=== PATIENT | male | born 1980 | race Caucasian/White ===

== ENCOUNTER 2017-02-15 21:18 | Emergency (ER) | payer OTHER ==
[~2017-02-15] VITALS: Ht 180.3 cm; Wt 113.4 kg
[2017-02-15 21:24] VITALS: BP 141/90
--- NOTE | 2017-02-15 22:46 | NUR ---
BIB SPOUSE, C/O CHEST PAIN X 4 HOURS. PT STATES HE HAS HAD THIS PAIN IN THE PAST AND BEEN DX WITH RIB CAGE PAIN. PT STATES HIS PAIN IS A 2 RT NOW, PT STATES IT FEELS LIKE SOMEONE POKING ON HIS CHEST. PT DENIES N/V/D; SKIN IS PINK/WARM/DRY; AAOX4 WITH EVEN AND STEADY GAIT; LUNGS CLEAR BL; HR EVEN AND REGULAR; PT DENIES ANY FEVER,SOB, OR COUGH AT THIS TIME; PATIENT STATES PAIN OF 2/10 AT THIS TIME; VSS; PATIENT POSITIONED FOR COMFORT; HOB ELEVATED; BEDRAILS UP X2; BED DOWN. ER MD MADE AWARE OF PT STATUS.
--- NOTE | 2017-02-15 23:08 | NUR ---
Patient being evaluated by physician at bedside.
[2017-02-15 23:30] VITALS: BP 140/82
--- NOTE | 2017-02-15 23:30 | NUR ---
Patient discharged with v/s stable. Written and verbal after care instructions given and explained. Patient verbalized understanding. Ambulatory with steady gait. All questions addressed prior to discharge. Advised to follow up with PMD.
== END 2017-02-15 23:30 | disposition home or self-care (01) ==
LOC: MED 21:18
DX: R07.89 Other chest pain (principal); R03.0 Elevated blood-pressure reading, without diagnosis of hypertension
CPT/HCPCS: 71010; 81002; 93005; 99284

== ENCOUNTER 2023-08-01 14:33 | Emergency (ER) | payer OTHER ==
[~2023-08-01] VITALS: Ht 180.3 cm; Wt 127.0 kg
[2023-08-01 14:46] VITALS: BP 170/97; PULSE 97; RESP 20; TEMP 97.7; O2SAT 99
[2023-08-01 15:29] LABS: BILIRUBIN,URINE NEGATIVE (NEGATIVE); BLOOD, URINE 1+ (NEGATIVE); COLOR,URINE YELLOW (YELLOW); LEUKOCYTE ESTERASE ,URINE 1+ (NEGATIVE); NITRITE, URINE NEGATIVE (NEGATIVE); PROTEIN,URINE NEGATIVE (NEGATIVE); UGLUCOSE NEGATIVE (NEGATIVE); UROBILINOGEN,URINE 0.2 EU/dL (0.2 - 1)
[2023-08-01 15:33] LABS: APPEARANCE,URINE HAZY (CLEAR)
[2023-08-01 15:41] LABS: BACTERIA,URINE FEW /HPF (None Seen); RBC,URINE NONE SEEN /HPF (0-5); SQUAMOUS EPITHELIAL CELL,UR 0-3 (FEW) /LPF (0-3 (FEW))
[2023-08-01] MEDS ORDERED: CEPH-588 PO (17:16)
[2023-08-01] MEDS ORDERED: DOXY-690 PO (17:16)
[2023-08-01] MEDS ORDERED: cefTRIAXone 500 MG VIAL ONE (17:33)
[2023-08-01] MEDS ORDERED: LIDOCAINE MPF 1% 5 ML ONE (17:33)
[2023-08-01] MEDS: cefTRIAXone 500 MG in LIDOCAINE MPF 1% 1 ML IM ONE (17:41)
[2023-08-01 17:42] VITALS: BP 162/117; PULSE 94; RESP 18; TEMP 98.2; O2SAT 97
[2023-08-01] MEDS ORDERED: AMLO5TAB PO (17:47)
== END 2023-08-01 17:48 | disposition home or self-care (01) ==
LOC: MED 14:33
DX: N39.0 Urinary tract infection, site not specified (principal); Z79.899 Other long term (current) drug therapy; Z79.2 Long term (current) use of antibiotics
CPT/HCPCS: 81001; 87086; 87491; 96372; 99283; J0696; J2001